=== PATIENT | female | born 1945 | race Caucasian/White ===

== ENCOUNTER 2018-01-19 18:49 | Observation (INO) ==
[2018-01-19] MEDS ORDERED: Nitroglycerin 0.4 MG TAB.SUBL SL PRN (23:48)
--- NOTE | 2018-01-20 00:30 | Internal Med History&Physical ---
Date of Encounter: 01/20/18 Time of Encounter: 00:00 Internal Medicine - H&P: HPI Chief complaint: Chest pain Admitted From: Home Plans for Post Hospital Care: Home History of present illness: Judi Gudino is a 72-year-old woman with a history of coronary artery disease status post 2 stents in 2011 and 2013 respectively, hypertension and hypothyroidism who presents here on transfer from [facility] where she presented to the complaint of chest pain. She states that she has been having on and off chest pain for many months for which she takes nitroglycerin as needed however over the last 4 days the pain has been more constant and severe in intensity and with only modest relief with her sublingual nitroglycerin. He comes in now for care because she was forced to by her children due to the unrelenting pain. She describes the pain as a heaviness over her precordium with occasional sharp exacerbations that radiate towards her left arm. She denies accompanying dyspnea or diaphoresis. At [facility] she was given 4 mg of morphine, 325 aspirin and one nitroglycerin which she says improved her pain. She usually follows with Dr. Argueta at [facility] however she requested transfer here. At this time she reports feeling well and wishes to eat and denies any active complaints. Past Med Surg Social Fam HX - Past Medical History Medical history: COPD, hypertension Additional medical history: CAD. PVD Psychiatric history: anxiety, depression - Past Surgical History Surgical History: hysterectomy Additional surgical history: back surgery. heart stents. bilateral carotid endarterectomy - Social History Smoking Status: Current some day smoker Smokeless Tobacco Status: No Alcohol use: none Drug use: none - Family History Mother Living Status: Age at : 75 Hx Family Cancer: Yes (leukemia) Father Living Status: Age at : 84 Hx Family Cancer: Yes Brother Age: 83 Living Status: Still Living Hx Family Cancer: Yes (prostate cancer) Sister Living Status: Age at : 86 Cause of : breast cancer Internal Medicine - H&P: Meds Amlodipine [Norvasc] 10 mg PO DAILY 02/10/15 [History] Aspirin Enteric Coated [Aspirin EC] 81 mg PO DAILY 02/10/15 [History] Clopidogrel [Plavix] 75 mg PO DAILY 02/10/15 [History] Dapsone 100 mg PO DAILY 02/10/15 [History] Ferrous Sulfate 325 mg PO DAILY 02/10/15 [History] Isosorbide MONOnitrate (24 HR) [Imdur] 120 mg PO DAILY 02/10/15 [History] Nitroglycerin [Nitrostat] 0.4 mg SL AD PRN 02/10/15 [History] Carvedilol [Coreg] 25 mg PO BID 02/25/16 [History] FLUoxetine HCl [Prozac] 20 mg PO DAILY 02/25/16 [History] Levothyroxine [Synthroid] 150 mcg PO 0630 02/25/16 [History] Lisinopril [Zestril] 40 mg PO DAILY 02/25/16 [History] Zolpidem [Ambien] 5 mg PO HS PRN 02/25/16 [History] Albuterol Sulfate [Proair Hfa] 2 puff IH QID PRN 01/19/18 [History] Alendronate Sodium [Fosamax] 70 mg PO QWEEK 01/19/18 [History] Atorvastatin Calcium [Lipitor] 10 mg PO DAILY 01/19/18 [History] Ezetimibe [Zetia] 10 mg PO HS 01/19/18 [History] Gabapentin [Neurontin] 300 mg PO TID 01/19/18 [History] Tiotropium [Spiriva] 18 mcg IH DAILY 01/19/18 [History] 3 Allergy/AdvReac Type Severity Reaction Status Date / Time No Known Allergies Allergy Verified 02/25/16 07:48 All Systems PM: A 10-system review of systems was performed and is negative for pertinent findings except as documented above in the HPI. - Constitutional Vitals: Temp Pulse Resp BP Pulse Ox 98.8 F 63 16 146/75 91 01/19/18 23:12 01/19/18 23:12 01/19/18 23:12 01/19/18 23:12 01/19/18 23:12 Exam: Vitals: Reviewed General: Well-developed and in no acute distress laying comfortably in bed Skin: Warm and supple HEENT: Moist mucous membranes. No conjunctivae pallor. Neck: No lymphadenopathy. No JVD. No carotid bruits. No palpable thyroid. Chest: Normal thoracic expansion. Normal breath sounds. Clear to auscultation. Heart: Normal S1 & S2; rhythmic. No rubs or murmurs. Abdomen: Non-distended, soft and non-tender to palpation. No peritoneal reaction. Extremities: No clubbing, cyanosis or edema. No calf tenderness. Normal distal pulses. Neurological: Awake, alert and oriented to person, place and time. No focal deficits. Psych: Affect appropriate. Internal Med - H&P Results - Labs Labs: Outside labs reviewed and remarkable for WBC of 9.2, hemoglobin 12.7, sodium 141 , potassium 4.7, chloride 101, creatinine 0.71 and negative troponin at 5:30 PM. - Assessment and plan (1) Chest pain Current Visit: Yes Status: Acute Assessment and plan: The patient's EKG does not have signs of acute ischemic disease which is reassuring. Her symptoms have also been going on for 4 days therefore if she were to be having AMI, one would presume there would be a positive troponin or EKG by now. Likely more unstable angina at this point. She is at moderate to high risk of ACS however. Her last stress test was in 2013 she says. Will keep NPO past midnight for nuclear stress test. Obtain another EKG and troponin here. If negative, no need for more. Continue dual antiplatelet therapy. NTG prn. Telemetry monitoring. Qualifiers: Chest pain type: precordial pain Qualified Code(s): R07.2 - Precordial pain (2) CAD (coronary artery disease) Current Visit: Yes Status: Acute Assessment and plan: Will continue long acting nitrate therapy and dual antiplatelet therapy. Qualifiers: Coronary Disease-Associated Artery/Lesion type: [place] artery [place] vs. transplanted heart: [place] heart Associated angina: with unstable angina Qualified Code(s): I25.110 - Atherosclerotic heart disease of [place] coronary artery with unstable angina pectoris (3) Hypertension Current Visit: Yes Status: Acute Assessment and plan: Will continue home antihypertensives. Qualifiers: Hypertension type: essential hypertension Qualified Code(s): I10 - Essential (primary) hypertension (4) Peripheral neuropathy Current Visit: Yes Status: Chronic Assessment and plan: Continue gabapentin. Unclear etiology. Qualifiers: Peripheral neuropathy type: polyneuropathy, unspecified Qualified Code(s): G62.9 - Polyneuropathy, unspecified (5) DVT prophylaxis Current Visit: Yes Status: Acute Assessment and plan: SubQ heparin. - Time Spent With Patient Total time spent is greater than 50% in coordination of care (as documented) at patient's floor/unit and/or counseling patient: Greater than 35 minutes
[2018-01-20] MEDS: Gabapentin 300 MG CAPSULE PO SCH ×2 (00:56→10:59)
[2018-01-20] MEDS ORDERED: Regadenoson 0.4 MG/5 ML SYRINGE IVP ONE (05:59)
[2018-01-20] MEDS ORDERED: *HR* Heparin 5,000 UNIT/ML VIAL SQ SCH (06:00)
[2018-01-20 06:11] LABS: Basophils % 0.3 %; Eosinophils # 0.2 K/mcL (0.0-0.6); Hematocrit 40.9 % (35.3-44.9); Hemoglobin 12.3 g/dL (11.5-15.4); Immature Granulocytes % 0.4 % (0-4); Lymphocytes % 28.8 %; Mean Corpuscular HGB Conc 30.1 g/dL (31.6-35.5); Mean Corpuscular Volume 83.1 fL (83.0-100.0); Mean Platelet Volume 11.1 fL (9.4-12.4); Monocytes # 0.9 K/mcL (0.0-1.3); Monocytes % 12.6 %; Neutrophils # 3.9 K/mcL (1.6-8.9); Platelet Count 179 K/mcL (140-400); Red Blood Count 4.92 M/mcL (3.82-4.97); Red Cell Distribution Width 16.9 % (11.5-14.5); Segmented Neutrophils % 54.9 %
[2018-01-20 06:16] LABS: Prothrombin Time 11.7 Seconds (9.4-12.1)
[2018-01-20 06:19] LABS: Activated Partial Thrombo Time 36.9 Seconds (26.0-36.0)
[2018-01-20 06:32] LABS: Troponin I < 0.03 ng/mL (< 0.04)
[2018-01-20 06:35] LABS: Alanine Aminotransferase 12 Units/L (7-52); Albumin 3.7 g/dL (3.5-5.7); Albumin/Globulin Ratio 1.3 (1.1-2.2); Alkaline Phosphatase 72 Units/L (34-104); Aspartate Amino Transferase 14 Units/L (13-39); BUN/Creatinine Ratio 21 (6-26); Bilirubin,Total 0.3 mg/dL (0.3-1.0); Blood Urea Nitrogen 15 mg/dL (8-23); Calcium 9.3 mg/dL (8.6-10.3); Carbon Dioxide 31 mEq/L (23-29); Chloride 102 mEq/L (98-107); Chol/HDL Ratio 4.8 (0-4.9); Cholesterol 181 mg/dL (< 200); Globulin 2.8 g/dL (2.4-3.5); Glucose 105 mg/dL (70-105); HDL Cholesterol 38 mg/dL (40-59); LDL Cholesterol,Calculated 95 mg/dL (0-99); Osmolality,Calculated 293 (280-300); Potassium 3.9 mEq/L (3.5-5.1); Sodium 141 mEq/L (136-145); Total Protein 6.5 g/dL (6.4-8.9); Triglycerides 240 mg/dL (< 150); eGFR For Non-African Americans > 60 (> 60)
[2018-01-20 06:45] LABS: Thyroid Stimulating Hormone 0.098 mcIU/mL (0.340-5.600)
[2018-01-20 07:22] LABS: Estimated Average Glucose 103 mg/dl; Hemoglobin A1C 5.2 %
[2018-01-20] MEDS ORDERED: Isosorbide MONOnitrate (24 HR) 60 MG TAB.ER.24H PO SCH (09:00)
[2018-01-20] MEDS ORDERED: amLODIPine 5 MG TABLET PO SCH (09:00)
[2018-01-20] MEDS ORDERED: Tiotropium 18 MCG inhalation IH SCH (09:00)
[2018-01-20] MEDS ORDERED: Gabapentin 300 MG CAPSULE PO SCH (09:00)
[2018-01-20] MEDS ORDERED: Lisinopril 20 MG TABLET PO SCH (09:00)
[2018-01-20] MEDS ORDERED: Aspirin Enteric Coated 81 MG Tablet PO SCH (09:00)
[2018-01-20] MEDS ORDERED: FLUoxetine 20 MG CAPSULE PO SCH (09:00)
[2018-01-20 11:36] VITALS: BP 129/67
--- NOTE | 2018-01-20 13:38 | Discharge Summary ---
Orders not resulted at time of discharge: Pending orders 01/20/18 00:22 NM jayna perf SPECT multi [NM] Routine Date of Encounter: 01/20/18 Time of Encounter: 11:00 - Discharge Diagnosis (1) Chest pain Priority: Primary Status: Acute Qualifiers: Chest pain type: precordial pain Qualified Code(s): R07.2 - Precordial pain (2) CAD (coronary artery disease) Priority: Primary Status: Acute Qualifiers: Coronary Disease-Associated Artery/Lesion type: [place] artery [place] vs. transplanted heart: [place] heart Associated angina: with unstable angina Qualified Code(s): I25.110 - Atherosclerotic heart disease of [place] coronary artery with unstable angina pectoris (3) Hypertension Priority: Secondary Status: Acute Qualifiers: Hypertension type: essential hypertension Qualified Code(s): I10 - Essential (primary) hypertension (4) Peripheral neuropathy Priority: Secondary Status: Chronic Qualifiers: Peripheral neuropathy type: polyneuropathy, unspecified Qualified Code(s): G62.9 - Polyneuropathy, unspecified (5) DVT prophylaxis Priority: Secondary Status: Acute Hospital course: Ms. Gudino is a 72 year old female transferred from [facility] emergency room for chest pain. Patient's chest pain is intermittent, with nausea and diaphoresis. Patient has history of CAD S/P stent. Patient was placed on continuous cardiac monitoring. 2 troponin in [facility] and one troponin in our hospital are negative. EKG and chest x-ray unremarkable. Patient had nuclear stress test this morning, result is negative for ischemia. Patient is pain- free right now. Vitals are stable. Will consider discharge patient home and continue follow-up with PCP and cardiology as outpatient. Patient was seen and examined. Denies chest pain, difficulty breathing, nausea , or diaphoresis. Vitals are stable. We will discharge patient home, continue DAPT, beta iman, imdur, and statin. Continue follow-up with PCP and cardiology. - Time Spent with Patient Total time spent providing and/or coordinating discharge services: 25 min Less than 30 minutes - Discharge Medications Home Medications: Amlodipine [Norvasc] 10 mg PO DAILY 02/10/15 [History] Aspirin Enteric Coated [Aspirin EC] 81 mg PO DAILY 02/10/15 [History] Clopidogrel [Plavix] 75 mg PO DAILY 02/10/15 [History] Dapsone 100 mg PO DAILY 02/10/15 [History] Ferrous Sulfate 325 mg PO DAILY 02/10/15 [History] Isosorbide MONOnitrate (24 HR) [Imdur] 120 mg PO DAILY 02/10/15 [History] Nitroglycerin [Nitrostat] 0.4 mg SL AD PRN 02/10/15 [History] Carvedilol [Coreg] 25 mg PO BID 02/25/16 [History] FLUoxetine HCl [Prozac] 20 mg PO DAILY 02/25/16 [History] Levothyroxine [Synthroid] 150 mcg PO 0630 02/25/16 [History] Lisinopril [Zestril] 40 mg PO DAILY 02/25/16 [History] Zolpidem [Ambien] 5 mg PO HS PRN 02/25/16 [History] Albuterol Sulfate [Proair Hfa] 2 puff IH QID PRN 01/19/18 [History] Alendronate Sodium [Fosamax] 70 mg PO QWEEK 01/19/18 [History] Atorvastatin Calcium [Lipitor] 10 mg PO DAILY 01/19/18 [History] Ezetimibe [Zetia] 10 mg PO HS 01/19/18 [History] Gabapentin [Neurontin] 300 mg PO TID 01/19/18 [History] Tiotropium [Spiriva] 18 mcg IH DAILY 01/19/18 [History] Allergies/Adverse Reactions: 3 Allergy/AdvReac Type Severity Reaction Status Date / Time No Known Allergies Allergy Verified 02/25/16 07:48 Date of admission: 01/19/18 21:19 Primary care physician: MAHENDRA Hart Discharging clinician: Mere Martin Anticipated date of discharge: 01/20/18 - Constitutional Vitals: Temp Pulse Resp BP Pulse Ox 97.9 F 67 16 129/67 92 01/20/18 11:34 01/20/18 11:34 01/20/18 11:34 01/20/18 11:34 01/20/18 11:34 General appearance: Present: A&O X 3, no acute distress, answers questions appropriately Exam: in NAD - Head Head exam: Present: atraumatic, normocephalic - Eye Eye exam: Present: PERRL, conjuntiva pink, sclera anicteric Pupils: Present: PERRL - Neck Neck exam general surgery: Present: supple, trachea midline. Absent: lymphadenopathy - Respiratory Respiratory exam: Present: CTAB. Absent: accessory muscle use, rales, rhonchi, wheezes - Cardiovascular Cardiovascular exam: Present: RRR, +S1, +S2. Absent: diastolic murmur, gallop, rubs, systolic murmur - GI/Abdominal GI/Abdominal exam: Present: normal bowel sounds, soft, no peritoneal signs. Absent: distended, tenderness - Extremities Exam Extremities exam: Present: warm, radial pulses palpable and symmetrical. Absent : calf tenderness, cyanotic, pedal edema - Neurological Exam Neurological exam: Present: CN II-XII intact, oriented X3, no focal deficits. Absent: pronater drift, facial droop, speech deficit - Skin Skin exam: Present: dry, intact - Patient Status Disposition: Home, Self-Care Condition: Good Functional capacity at discharge: independent ambulation Overall status at discharge: patient is back to baseline - Discharge Instructions Follow Up With: Gabrielle Wills ENROLLED NURSE [Primary Care Provider] - - Diet and Activity Activity: increase activity as tolerated Diet: advance to your usual diet
[2018-01-20] MEDS ORDERED: (Ezetimibe [Zetia] 10 MG) PO SCH (21:00)
--- NOTE | 2018-01-21 09:08 | Electrocardiograph Report ---
[address] [place] [address] Test Date: 2018-01-20 Pat Name: Judi Gudino Department: 113 Room: 3B63 Gender: F [employer] Program Specialist: : 1945 Requested By: Rajni Lujan Order Number: [id number] Reading MD: Nilo Viera Measurements Intervals [place] Rate: 62 P: 50 FL: 142 QRS: 37 QRSD: 118 T: 124 QT: 437 QTc: 442 Interpretive Statements SINUS RHYTHM POSSIBLE INFERIOR MYOCARDIAL INFARCTION, OF INDETERMINATE AGE MODERATE T-WAVE ABNORMALITY, CONSIDER LATERAL ISCHEMIA Electronically Signed On 01-21-2018 9:07:17 EDT by Nilo Viera
== END 2018-01-20 14:59 | disposition home or self-care (01) ==
LOC: 3BNU
PROVIDERS: ADMIT Internal Medicine; ATTEND Student in an Organized Health Care Education/Training Program

== ENCOUNTER 2019-03-08 13:51 | Inpatient (IN) ==
[2019-03-08] MEDS ORDERED: Aminoglycoside Consult 1 EACH MC ONE (16:47)
[2019-03-08] MEDS ORDERED: Artificial Tears SOLN 15 ML BOTTLE BOTH EYES PRN (17:41)
[2019-03-08] MEDS ORDERED: Naloxone 0.4 MG/ML INJ IVP PRN (17:41)
[2019-03-08] MEDS ORDERED: Acetaminophen 325 MG TABLET PO PRN (17:41)
[2019-03-08] MEDS ORDERED: Vancomycin (wt based) 1,000 MG VIAL IVPB SCH (18:00)
[2019-03-08] MEDS ORDERED: *HR* Heparin 5,000 UNIT/ML VIAL IVP PRN ×2 (18:11)
[2019-03-08] MEDS ORDERED: *HR* Heparin 5,000 UNIT/ML VIAL IVP ONE (18:11)
[2019-03-08 18:34] LABS: ABG Base Excess 6 mEq/L (-2 to 3); ABG HCO3 32 mEq/L (21-27); ABG Oxygen Saturation 95 % (95-98); ABG PCO2 52 mmHg (35-45); ABG PO2 77 mmHg (85-104); ABG TCO2 34 mEq/L (20-26); Blood Gas Modality VC; Blood Gas VT 400 cc
[2019-03-08] MEDS ORDERED: Ipratropium/Albuterol Neb 3 ML IH PRN (18:43)
[2019-03-08 18:54] LABS: Basophils % 0.2 %; Hematocrit 38.7 % (35.3-44.9); Immature Granulocytes % 0.5 % (0-4); Lymphocytes # 0.6 K/mcL (0.6-4.6); Lymphocytes % 8.8 %; Monocytes # 0.3 K/mcL (0.0-1.3); Monocytes % 4.3 %; Neutrophils # 5.6 K/mcL (1.6-8.9); Segmented Neutrophils % 86.2 %; White Blood Count 6.5 K/mcL (4.3-11.1)
[2019-03-08 18:55] LABS: Immature Platelets 11.4 % (1.1-6.1); Mean Corpuscular Hemoglobin 25.8 pg (28.0-33.3); Mean Corpuscular Volume 83.2 fL (83.0-100.0); Mean Platelet Volume 12.6 fL (9.4-12.4); Red Blood Count 4.65 M/mcL (3.82-4.97); Red Cell Distribution Width 18.7 % (11.5-14.5)
[2019-03-08 18:55] LABS: Heparin anti-factor XA UFH 0.25 IU/mL (0.30-0.70); INR 1.1; Prothrombin Time 12.4 Seconds (9.4-12.1)
[2019-03-08 19:11] LABS: Albumin 3.8 g/dL (3.5-5.7); Albumin/Globulin Ratio 1.4 (1.1-2.2); Bilirubin,Direct 0.3 mg/dL (0.0-0.2); Bilirubin,Indirect 0.4 mg/dL (0.0-1.0); Bilirubin,Total 0.7 mg/dL (0.3-1.0); Calcium 8.6 mg/dL (8.6-10.3); Globulin 2.8 g/dL (2.4-3.5); Phosphorous 3.5 mg/dL (2.7-4.5); Potassium 4.6 mEq/L (3.5-5.1); Total Protein 6.6 g/dL (6.4-8.9)
[2019-03-08 19:12] LABS: Calcium 8.6 mg/dL (8.6-10.3); Platelet Count 97 K/mcL (140-400); Potassium 4.6 mEq/L (3.5-5.1)
[2019-03-08 19:14] LABS: Platelet Estimate Decreased (Normal)
[2019-03-08 19:15] LABS: Troponin I 4.39 ng/mL (< 0.04)
[2019-03-08] MEDS: Artificial Tears SOLN 15 ML BOTTLE BOTH EYES SCH (20:10)
[2019-03-08] MEDS: Chlorhexidine Rinse 15 ML MOUTHWASH MM SCH (20:10)
[2019-03-08] MEDS: FentaNYL (PF) 1,000 MCG in 0.9 % Sodium Chloride 80 ML IVC SCH (20:30)
[2019-03-08] MEDS: Heparin 25,000 UNIT/250 ML D5W 25,000 UNIT/250 ML IV.SOLN IVC SCH (21:10)
[2019-03-09 00:21] LABS: Bilirubin,Urine Small (Negative); Blood,Urine Negative (Negative); Clarity,Urine Cloudy (Clear); Color,Urine Dark Yellow (Yellow); Glucose,Urine (UA) Normal (Normal); Ketones,Urine Negative (Negative); Leukocyte Esterase,Urine Small (Negative); Nitrite,Urine Negative (Negative); Protein,Urine 30 mg/dL (Neg-Trace); Specific Gravity,Urine 1.022 (1.010-1.025); Urobilinogen,Urine Normal (Normal)
[2019-03-09 00:23] LABS: Hyaline Casts,Urine Few per lpf (None-Few)
[2019-03-09] MEDS: Artificial Tears SOLN 15 ML BOTTLE BOTH EYES SCH ×6 (00:25→20:11)
[2019-03-09] MEDS: methylPREDNISolone 125 MG/2 ML VIAL IVP SCH ×3 (00:25→16:47)
[2019-03-09] MEDS: Piperacillin/Tazobactam 3.375 GM in 0.9 % Sodium Chloride Mini Bag 100 ML IVPB SCH ×3 (00:26→16:46)
[2019-03-09 00:40] LABS: Bacteria,Urine Many per hpf (None-Few)
[2019-03-09 00:41] LABS: Squamous Epithelial Cell,Urine Few per lpf (None-Few)
[2019-03-09 01:45] LABS: Basophils % 0.2 %; Red Blood Count 4.31 M/mcL (3.82-4.97)
[2019-03-09 01:47] LABS: Hematocrit 35.1 % (35.3-44.9); Immature Granulocytes % 0.3 % (0-4); Immature Platelets 12.6 % (1.1-6.1); Lymphocytes # 0.6 K/mcL (0.6-4.6); Lymphocytes % 10.1 %; Mean Corpuscular HGB Conc 31.3 g/dL (31.6-35.5); Mean Corpuscular Hemoglobin 25.5 pg (28.0-33.3); Mean Corpuscular Volume 81.4 fL (83.0-100.0); Mean Platelet Volume 12.3 fL (9.4-12.4); Monocytes # 0.4 K/mcL (0.0-1.3); Monocytes % 6.2 %; Red Cell Distribution Width 18.4 % (11.5-14.5); Segmented Neutrophils % 83.2 %; White Blood Count 6.3 K/mcL (4.3-11.1)
[2019-03-09 02:01] LABS: Calcium 8.5 mg/dL (8.6-10.3); Potassium 4.8 mEq/L (3.5-5.1)
[2019-03-09 02:18] LABS: Neutrophils # 5.2 K/mcL (1.6-8.9); Platelet Count 99 K/mcL (140-400)
[2019-03-09] MEDS ORDERED: *HR* Ticagrelor 90 MG TABLET PO ONE (03:36)
[2019-03-09 04:41] LABS: ABG Base Excess 8 mEq/L (-2 to 3); ABG HCO3 34 mEq/L (21-27); ABG Oxygen Saturation 97 % (95-98); ABG PCO2 49 mmHg (35-45); ABG PH 7.45 pH Units (7.32-7.45); ABG PO2 90 mmHg (85-104); ABG TCO2 35 mEq/L (20-26); Blood Gas Modality VC; Blood Gas VT 400 cc
[2019-03-09] MEDS: Chlorhexidine Rinse 15 ML MOUTHWASH MM SCH ×2 (08:53→20:11)
[2019-03-09] MEDS: Pantoprazole 40 MG VIAL IVP SCH (08:53)
[2019-03-09] MEDS ORDERED: Aspirin 81 MG TAB.CHEW PO SCH (09:00)
[2019-03-09] MEDS ORDERED: 0.9 % Sodium Chloride 1,000 ML IVC SCH (10:45)
[2019-03-09] MEDS: FentaNYL (PF) 1,000 MCG in 0.9 % Sodium Chloride 80 ML IVC SCH (10:54)
[2019-03-09] MEDS: Furosemide 20 MG/2 ML VIAL IVP SCH (11:28)
[2019-03-09 13:40] LABS: Adenovirus Not Detected (Not Detect); Bordetella Pertussis Not Detected (Not Detect); Chlamydophila pneumoniae Not Detected (Not Detect); Coronavirus 229E Not Detected (Not Detect); Coronavirus HKU1 Not Detected (Not Detect); Coronavirus NL63 Not Detected (Not Detect); Coronavirus OC43 Not Detected (Not Detect); Human Metapneumovirus Not Detected (Not Detect); Human Rhinovirus/Enterovirus Not Detected (Not Detect); Influenza A Subtype 2009 H1 Not Detected (Not Detect); Influenza A Untypeable Not Detected (Not Detect); Influenza B Not Detected (Not Detect); Mycoplasma pneumoniae Not Detected (Not Detect); Parainfluenza Virus 1 Not Detected (Not Detect); Parainfluenza Virus 2 Not Detected (Not Detect); Parainfluenza Virus 3 Not Detected (Not Detect); Parainfluenza Virus 4 Not Detected (Not Detect); Respiratory Syncytial Virus Not Detected (Not Detect)
[2019-03-09] MEDS ORDERED: 0.9 % Sodium Chloride 2,000 ML ONE (13:58)
[2019-03-09] MEDS ORDERED: ISOVUE-370 200 ML INFUS..BTL ONE ×2 (13:59→15:25)
[2019-03-09] MEDS ORDERED: *HR* Heparin 10,000 UNIT/10 ML VIAL ONE (13:59)
[2019-03-09] MEDS ORDERED: Heparin 1,000 UNITS/500 mL 500 ML ONE (13:59)
[2019-03-09] MEDS ORDERED: Nitroglycerin 1,000 MCG/10 ML VIAL IV ONE (13:59)
[2019-03-09] MEDS ORDERED: Tirofiban 12.5 MG/250ML 12.5 MG/250 ML BAG ONE (15:16)
[2019-03-09] MEDS ORDERED: Tirofiban 12.5 MG/250ML 12.5 MG/250 ML BAG IVC SCH (15:45)
[2019-03-09] MEDS: Heparin 25,000 UNIT/250 ML D5W 25,000 UNIT/250 ML IV.SOLN IVC SCH (18:42)
[2019-03-09] MEDS: *HR* Ticagrelor 90 MG TABLET PO SCH (20:12)
[2019-03-10] MEDS: Artificial Tears SOLN 15 ML BOTTLE BOTH EYES SCH ×6 (00:56→19:47)
[2019-03-10] MEDS: methylPREDNISolone 125 MG/2 ML VIAL IVP SCH ×4 (00:56→23:54)
[2019-03-10] MEDS: Piperacillin/Tazobactam 3.375 GM in 0.9 % Sodium Chloride Mini Bag 100 ML IVPB SCH ×2 (01:15→08:43)
[2019-03-10] MEDS: FentaNYL (PF) 1,000 MCG in 0.9 % Sodium Chloride 80 ML IVC SCH (04:35)
[2019-03-10 05:31] LABS: Segmented Neutrophils % 86.5 %
[2019-03-10 05:32] LABS: Hematocrit 33.9 % (35.3-44.9); Immature Granulocytes % 0.6 % (0-4); Immature Platelets 12.3 % (1.1-6.1); Lymphocytes # 0.4 K/mcL (0.6-4.6); Lymphocytes % 5.6 %; Mean Corpuscular HGB Conc 32.4 g/dL (31.6-35.5); Mean Corpuscular Hemoglobin 26.1 pg (28.0-33.3); Mean Corpuscular Volume 80.3 fL (83.0-100.0); Monocytes # 0.5 K/mcL (0.0-1.3); Monocytes % 7.3 %; Neutrophils # 5.9 K/mcL (1.6-8.9); Nucleated Red Blood Cells 0.3 /100 WBC (0); Platelet Count 116 K/mcL (140-400); Red Blood Count 4.22 M/mcL (3.82-4.97); White Blood Count 6.8 K/mcL (4.3-11.1)
[2019-03-10 05:50] LABS: ABG Base Excess 6 mEq/L (-2 to 3); ABG HCO3 31 mEq/L (21-27); ABG Oxygen Saturation 98 % (95-98); ABG PCO2 42 mmHg (35-45); ABG PH 7.47 pH Units (7.32-7.45); ABG PO2 91 mmHg (85-104); ABG TCO2 32 mEq/L (20-26); Blood Gas Modality VC+; Blood Gas VT 400 cc
[2019-03-10 05:52] LABS: Calcium 8.4 mg/dL (8.6-10.3)
[2019-03-10] MEDS: *HR* Ticagrelor 90 MG TABLET PO SCH ×2 (08:40→19:47)
[2019-03-10] MEDS: Aspirin 81 MG TAB.CHEW PO SCH (08:40)
[2019-03-10] MEDS: Pantoprazole 40 MG VIAL IVP SCH (08:40)
[2019-03-10] MEDS: Chlorhexidine Rinse 15 ML MOUTHWASH MM SCH ×2 (08:41→19:47)
[2019-03-10] MEDS: Furosemide 20 MG/2 ML VIAL IVP SCH (08:41)
[2019-03-10] MEDS ORDERED: *HR* Metoprolol 5 MG/5 ML VIAL IVP ONE ×3 (11:35→13:19)
[2019-03-10] MEDS: *HR* LORazepam 0.5 MG TABLET PO PRN ×2 (13:53→21:20)
[2019-03-10] MEDS: Heparin 25,000 UNIT/250 ML D5W 25,000 UNIT/250 ML IV.SOLN IVC SCH (17:40)
[2019-03-10] MEDS: Meropenem 500 MG in Water for inj. (sterile) 10 ML IVP SCH (18:01)
[2019-03-10] MEDS ORDERED: *HR* LORazepam 2 MG/ML VIAL IVP ONE (23:43)
[2019-03-10] MEDS ORDERED: *HR* LORazepam 2 MG/ML VIAL ONE (23:51)
[2019-03-11] MEDS: Artificial Tears SOLN 15 ML BOTTLE BOTH EYES SCH ×3 (00:07→07:18)
[2019-03-11] MEDS: Meropenem 500 MG in Water for inj. (sterile) 10 ML IVP SCH (05:19)
[2019-03-11 06:08] LABS: Basophils % 0.1 %; Red Cell Distribution Width 18.8 % (11.5-14.5)
[2019-03-11 06:10] LABS: Eosinophils % 0.1 %; Hematocrit 38.4 % (35.3-44.9); Hemoglobin 12.2 g/dL (11.5-15.4); Immature Granulocytes % 0.7 % (0-4); Immature Platelets 10.8 % (1.1-6.1); Lymphocytes # 0.4 K/mcL (0.6-4.6); Mean Corpuscular HGB Conc 31.8 g/dL (31.6-35.5); Mean Corpuscular Volume 81.9 fL (83.0-100.0); Monocytes # 0.5 K/mcL (0.0-1.3); Monocytes % 6.2 %; Neutrophils # 7.2 K/mcL (1.6-8.9); Platelet Count 122 K/mcL (140-400); Red Blood Count 4.69 M/mcL (3.82-4.97); Segmented Neutrophils % 87.9 %; White Blood Count 8.2 K/mcL (4.3-11.1)
[2019-03-11 06:32] LABS: Anisocytosis 1+ (Not Present); Microcytosis Present (Not Present); Platelet Estimate Slight Decrease (Normal)
[2019-03-11] MEDS: Chlorhexidine Rinse 15 ML MOUTHWASH MM SCH (07:18)
[2019-03-11] MEDS: Aspirin 81 MG TAB.CHEW PO SCH (07:26)
[2019-03-11] MEDS: *HR* Ticagrelor 90 MG TABLET PO SCH ×2 (07:26→21:29)
[2019-03-11] MEDS: methylPREDNISolone 125 MG/2 ML VIAL IVP SCH (07:26)
[2019-03-11] MEDS: Pantoprazole 40 MG VIAL IVP SCH (07:27)
[2019-03-11 07:53] LABS: Calcium 8.8 mg/dL (8.6-10.3); Potassium 4.5 mEq/L (3.5-5.1)
[2019-03-11] MEDS ORDERED: Naloxone 0.4 MG/ML INJ IVP PRN (11:52)
[2019-03-11] MEDS ORDERED: Ipratropium/Albuterol Neb 3 ML IH PRN (11:52)
[2019-03-11] MEDS ORDERED: *HR* LORazepam 0.5 MG TABLET PO PRN (11:52)
[2019-03-11] MEDS ORDERED: Acetaminophen 325 MG TABLET PO PRN (11:52)
[2019-03-11] MEDS ORDERED: Piperacillin/Tazobactam 3.375 GM in 0.9 % Sodium Chloride Mini Bag 100 ML IVPB SCH (16:00)
[2019-03-11] MEDS: *HR* Heparin 5,000 UNIT/ML VIAL SQ SCH (17:26)
[2019-03-11] MEDS ORDERED: *HR* Heparin 5,000 UNIT/ML VIAL SQ SCH (18:00)
[2019-03-12 04:54] LABS: Basophils % 0.1 %; Mean Corpuscular Hemoglobin 25.3 pg (28.0-33.3); Red Cell Distribution Width 18.5 % (11.5-14.5)
[2019-03-12 04:56] LABS: Eosinophils % 0.2 %; Hematocrit 36.5 % (35.3-44.9); Hemoglobin 11.3 g/dL (11.5-15.4); Immature Granulocytes % 1.3 % (0-4); Lymphocytes # 1.2 K/mcL (0.6-4.6); Lymphocytes % 14.4 %; Mean Corpuscular Volume 81.8 fL (83.0-100.0); Mean Platelet Volume 12.6 fL (9.4-12.4); Monocytes # 1.2 K/mcL (0.0-1.3); Neutrophils # 5.8 K/mcL (1.6-8.9); Platelet Count 153 K/mcL (140-400); Red Blood Count 4.46 M/mcL (3.82-4.97); White Blood Count 8.3 K/mcL (4.3-11.1)
[2019-03-12 05:12] LABS: Calcium 8.9 mg/dL (8.6-10.3); Potassium 4.2 mEq/L (3.5-5.1)
[2019-03-12] MEDS: *HR* Heparin 5,000 UNIT/ML VIAL SQ SCH (06:09)
[2019-03-12] MEDS ORDERED: Nitroglycerin 0.4 MG TAB.SUBL SL PRN (08:30)
[2019-03-12] MEDS: *HR* Ticagrelor 90 MG TABLET PO SCH (08:50)
[2019-03-12] MEDS ORDERED: Isosorbide MONOnitrate (24 HR) 60 MG TAB.ER.24H PO SCH (09:00)
[2019-03-12] MEDS ORDERED: amLODIPine 5 MG TABLET PO SCH (09:00)
[2019-03-12] MEDS ORDERED: Pantoprazole 40 MG VIAL IVP SCH (09:00)
[2019-03-12] MEDS ORDERED: Aspirin 81 MG TAB.CHEW PO SCH (09:00)
[2019-03-12] MEDS ORDERED: predniSONE 20 MG TABLET PO SCH ×2 (09:00)
[2019-03-12] MEDS: Gabapentin 300 MG CAPSULE PO SCH ×2 (09:47→15:44)
[2019-03-12] MEDS ORDERED: Tiotropium 18 MCG inhalation IH SCH (10:00)
[2019-03-12 11:08] VITALS: BP 160/75
[2019-03-12] MEDS ORDERED: traZODone 50 MG TABLET PO SCH (21:00)
== END 2019-03-12 16:48 | disposition home health service (06) | DRG 853 ==
LOC: ICNU 17:21 → 2NENU 03-11 14:16
PROVIDERS: ADMIT Pediatrics; ATTEND Pediatrics

== ENCOUNTER 2019-04-23 13:28 | Inpatient (IN) ==
[2019-04-23] MEDS ORDERED: Ondansetron 4 MG/2 ML VIAL IVP PRN (16:48)
[2019-04-23 17:44] LABS: Monocytes % 1.2 %; Red Blood Count 4.53 M/mcL (3.82-4.97)
[2019-04-23 17:46] LABS: Basophils % 0.1 %; Eosinophils % 0.1 %; Hematocrit 38.1 % (35.3-44.9); Hemoglobin 11.7 g/dL (11.5-15.4); Immature Granulocytes % 1.2 % (0-4); Immature Platelets 11.1 % (1.1-6.1); Lymphocytes # 0.3 K/mcL (0.6-4.6); Lymphocytes % 4.7 %; Mean Corpuscular HGB Conc 30.7 g/dL (31.6-35.5); Mean Corpuscular Hemoglobin 25.8 pg (28.0-33.3); Mean Corpuscular Volume 84.1 fL (83.0-100.0); Mean Platelet Volume 11.7 fL (9.4-12.4); Monocytes # 0.1 K/mcL (0.0-1.3); Neutrophils # 6.4 K/mcL (1.6-8.9); Platelet Count 115 K/mcL (140-400); Red Cell Distribution Width 17.5 % (11.5-14.5); Segmented Neutrophils % 92.7 %; White Blood Count 6.9 K/mcL (4.3-11.1)
[2019-04-23 18:01] LABS: BUN/Creatinine Ratio 17 (6-26); Blood Urea Nitrogen 17 mg/dL (8-23); Calcium 9.2 mg/dL (8.6-10.3); Carbon Dioxide 31 mEq/L (23-29); Chloride 97 mEq/L (98-107); Glucose 228 mg/dL (70-105); Osmolality,Calculated 299 (280-300); Potassium 4.7 mEq/L (3.5-5.1); Sodium 140 mEq/L (136-145); eGFR For African Americans > 60 (> 60); eGFR For Non-African Americans 55 (> 60)
[2019-04-23] MEDS: Azithromycin 500 MG in 0.9 % Sodium Chloride 250 ML IVPB SCH (18:02)
[2019-04-23] MEDS: Levalbuterol Neb 1.25 MG/3 ML IH SCH ×2 (18:44→22:22)
[2019-04-23] MEDS ORDERED: Ibuprofen 400 MG TABLET PO ONE (18:46)
[2019-04-23] MEDS: Nicotine 14 MG PATCH.TD24 TD SCH (19:37)
[2019-04-23] MEDS: Gabapentin 300 MG CAPSULE PO SCH (20:44)
[2019-04-23] MEDS: traZODone 50 MG TABLET PO SCH (20:44)
[2019-04-23] MEDS: *HR* Ticagrelor 90 MG TABLET PO SCH (20:44)
[2019-04-23] MEDS: GuaiFENesin/Dextromethorphan TABLET PO SCH (20:44)
[2019-04-23 21:20] LABS: Adenovirus Not Detected (Not Detect); Bordetella Pertussis Not Detected (Not Detect); Chlamydophila pneumoniae Not Detected (Not Detect); Coronavirus 229E Not Detected (Not Detect); Coronavirus HKU1 Not Detected (Not Detect); Coronavirus NL63 Not Detected (Not Detect); Coronavirus OC43 Not Detected (Not Detect); Human Metapneumovirus Not Detected (Not Detect); Human Rhinovirus/Enterovirus Not Detected (Not Detect); Influenza A Subtype 2009 H1 Not Detected (Not Detect); Influenza A Untypeable Not Detected (Not Detect); Influenza B Not Detected (Not Detect); Mycoplasma pneumoniae Not Detected (Not Detect); Parainfluenza Virus 1 Not Detected (Not Detect); Parainfluenza Virus 2 Not Detected (Not Detect); Parainfluenza Virus 3 Not Detected (Not Detect); Parainfluenza Virus 4 Not Detected (Not Detect); Respiratory Syncytial Virus Not Detected (Not Detect)
[2019-04-23 22:41] LABS: ABG Base Excess 5 mEq/L (-2 to 3); ABG HCO3 32 mEq/L (21-27); ABG Oxygen Saturation 90 % (95-98); ABG PCO2 58 mmHg (35-45); ABG PH 7.36 pH Units (7.32-7.45); ABG PO2 62 mmHg (85-104); ABG TCO2 34 mEq/L (20-26)
[2019-04-24] MEDS ORDERED: Benzonatate 100 MG CAPSULE PO PRN (01:21)
[2019-04-24] MEDS: Levalbuterol Neb 1.25 MG/3 ML IH SCH ×4 (04:08→22:17)
[2019-04-24 04:31] LABS: Basophils % 0.1 %; Hematocrit 37.3 % (35.3-44.9); Hemoglobin 11.5 g/dL (11.5-15.4); Immature Granulocytes % 1.5 % (0-4); Lymphocytes # 0.8 K/mcL (0.6-4.6); Lymphocytes % 9.9 %; Mean Corpuscular HGB Conc 30.8 g/dL (31.6-35.5); Mean Corpuscular Hemoglobin 25.6 pg (28.0-33.3); Mean Corpuscular Volume 83.1 fL (83.0-100.0); Mean Platelet Volume 11.8 fL (9.4-12.4); Monocytes # 0.5 K/mcL (0.0-1.3); Monocytes % 6.5 %; Neutrophils # 6.6 K/mcL (1.6-8.9); Nucleated Red Blood Cells 0.2 /100 WBC (0); Platelet Count 149 K/mcL (140-400); Red Blood Count 4.49 M/mcL (3.82-4.97); Red Cell Distribution Width 17.7 % (11.5-14.5)
[2019-04-24 04:51] LABS: BUN/Creatinine Ratio 29 (6-26); Blood Urea Nitrogen 22 mg/dL (8-23); Calcium 9.3 mg/dL (8.6-10.3); Carbon Dioxide 30 mEq/L (23-29); Chloride 100 mEq/L (98-107); Glucose 161 mg/dL (70-105); Osmolality,Calculated 299 (280-300); Potassium 4.8 mEq/L (3.5-5.1); Sodium 141 mEq/L (136-145); eGFR For African Americans > 60 (> 60); eGFR For Non-African Americans > 60 (> 60)
[2019-04-24] MEDS: *HR* Ticagrelor 90 MG TABLET PO SCH ×2 (09:23→20:00)
[2019-04-24] MEDS: Aspirin Enteric Coated 81 MG Tablet PO SCH (09:23)
[2019-04-24] MEDS: GuaiFENesin/Dextromethorphan TABLET PO SCH ×2 (09:24→20:00)
[2019-04-24] MEDS: amLODIPine 5 MG TABLET PO SCH (09:24)
[2019-04-24] MEDS: Isosorbide MONOnitrate (24 HR) 60 MG TAB.ER.24H PO SCH (09:24)
[2019-04-24] MEDS: Gabapentin 300 MG CAPSULE PO SCH ×3 (09:24→20:00)
[2019-04-24] MEDS: MethylPREDNISolone 40 MG/ML VIAL IVP SCH ×2 (09:25→17:45)
[2019-04-24] MEDS: Nicotine 14 MG PATCH.TD24 TD SCH (09:25)
[2019-04-24] MEDS: Nicotine 21 MG PATCH.TD24 TD SCH (15:15)
[2019-04-24] MEDS: Azithromycin 500 MG in 0.9 % Sodium Chloride 250 ML IVPB SCH (17:45)
[2019-04-24] MEDS: traZODone 50 MG TABLET PO SCH (20:00)
[2019-04-25] MEDS: Levalbuterol Neb 1.25 MG/3 ML IH SCH ×4 (04:09→22:34)
[2019-04-25] MEDS: MethylPREDNISolone 40 MG/ML VIAL IVP SCH ×2 (06:37→17:10)
[2019-04-25] MEDS: Gabapentin 300 MG CAPSULE PO SCH ×3 (08:40→22:31)
[2019-04-25] MEDS: Isosorbide MONOnitrate (24 HR) 60 MG TAB.ER.24H PO SCH (08:40)
[2019-04-25] MEDS: *HR* Ticagrelor 90 MG TABLET PO SCH ×2 (08:40→22:31)
[2019-04-25] MEDS: GuaiFENesin/Dextromethorphan TABLET PO SCH ×2 (08:40→22:31)
[2019-04-25] MEDS: Aspirin Enteric Coated 81 MG Tablet PO SCH (08:40)
[2019-04-25] MEDS: Nicotine 21 MG PATCH.TD24 TD SCH (08:40)
[2019-04-25] MEDS: amLODIPine 5 MG TABLET PO SCH (08:40)
[2019-04-25] MEDS: Ranolazine 500 MG TAB.ER.12H PO SCH ×2 (11:02→22:31)
[2019-04-25] MEDS ORDERED: Azithromycin 250 MG TABLET PO SCH (17:00)
[2019-04-25] MEDS: carvediloL 25 MG TABLET PO SCH (17:10)
[2019-04-25] MEDS: *HR* Heparin 5,000 UNIT/ML VIAL SQ SCH (17:10)
[2019-04-25] MEDS ORDERED: NON-FORMULARY MEDICATION 1 EACH EACH (Ezetimibe [Zetia] 10 MG) PO SCH (21:00)
[2019-04-25] MEDS: traZODone 50 MG TABLET PO SCH (22:31)
[2019-04-26] MEDS: Levalbuterol Neb 1.25 MG/3 ML IH SCH (04:53)
[2019-04-26] MEDS: MethylPREDNISolone 40 MG/ML VIAL IVP SCH (05:17)
[2019-04-26] MEDS: *HR* Heparin 5,000 UNIT/ML VIAL SQ SCH (05:17)
[2019-04-26 07:28] VITALS: BP 162/88
[2019-04-26] MEDS ORDERED: hydrALAZINE 25 MG TABLET PO SCH (08:15)
[2019-04-26] MEDS: Nicotine 21 MG PATCH.TD24 TD SCH (08:49)
[2019-04-26] MEDS: carvediloL 25 MG TABLET PO SCH (08:49)
[2019-04-26] MEDS: Aspirin Enteric Coated 81 MG Tablet PO SCH (08:49)
[2019-04-26] MEDS: *HR* Ticagrelor 90 MG TABLET PO SCH (08:49)
[2019-04-26] MEDS: Ranolazine 500 MG TAB.ER.12H PO SCH (08:49)
[2019-04-26] MEDS: GuaiFENesin/Dextromethorphan TABLET PO SCH (08:49)
[2019-04-26] MEDS: amLODIPine 5 MG TABLET PO SCH (08:49)
[2019-04-26] MEDS: Gabapentin 300 MG CAPSULE PO SCH (08:49)
[2019-04-26] MEDS: Isosorbide MONOnitrate (24 HR) 60 MG TAB.ER.24H PO SCH (08:49)
[2019-04-26] MEDS ORDERED: NON-FORMULARY MEDICATION 1 EACH EACH (Isosorbide Mononitrate [Isosorbide Mononitrate Er] 1 PO SCH (09:00)
[2019-04-26] MEDS ORDERED: Furosemide 20 MG TABLET PO SCH (09:00)
== END 2019-04-26 10:37 | disposition home or self-care (01) | DRG 190 ==
LOC: 2NENU → SUATTDRO 15:24
PROVIDERS: ADMIT Internal Medicine; ATTEND Internal Medicine

== ENCOUNTER 2019-04-30 21:28 | Inpatient (IN) ==
[2019-04-30] MEDS ORDERED: Ipratropium/Albuterol Neb 3 ML IH ONE (22:35)
[2019-04-30 22:36] LABS: Basophils % 0.3 %; Eosinophils # 0.1 K/mcL (0.0-0.6); Eosinophils % 1.2 %; Hematocrit 41.9 % (35.3-44.9); Hemoglobin 12.7 g/dL (11.5-15.4); Immature Granulocytes % 2.7 % (0-4); Lymphocytes # 2.8 K/mcL (0.6-4.6); Lymphocytes % 23.8 %; Mean Corpuscular HGB Conc 30.3 g/dL (31.6-35.5); Mean Corpuscular Volume 85.7 fL (83.0-100.0); Mean Platelet Volume 11.3 fL (9.4-12.4); Monocytes # 1.4 K/mcL (0.0-1.3); Monocytes % 11.7 %; Neutrophils # 7.1 K/mcL (1.6-8.9); Platelet Count 211 K/mcL (140-400); Red Blood Count 4.89 M/mcL (3.82-4.97); Red Cell Distribution Width 16.5 % (11.5-14.5); Segmented Neutrophils % 60.3 %; White Blood Count 11.8 K/mcL (4.3-11.1)
[2019-04-30 22:36] LABS: ABG Base Excess 12 mEq/L (-2 to 3); ABG HCO3 41 mEq/L (21-27); ABG Oxygen Saturation 89 % (95-98); ABG PCO2 73 mmHg (35-45); ABG PH 7.36 pH Units (7.32-7.45); ABG PO2 63 mmHg (85-104); ABG TCO2 43 mEq/L (20-26)
[2019-04-30 23:00] LABS: BUN/Creatinine Ratio 32 (6-26); Blood Urea Nitrogen 32 mg/dL (8-23); Calcium 9.2 mg/dL (8.6-10.3); Carbon Dioxide 41 mEq/L (23-29); Chloride 94 mEq/L (98-107); Glucose 145 mg/dL (70-105); Osmolality,Calculated 293 (280-300); Potassium 4.7 mEq/L (3.5-5.1); Sodium 137 mEq/L (136-145); eGFR For African Americans > 60 (> 60); eGFR For Non-African Americans 55 (> 60)
[2019-05-01] MEDS ORDERED: Naloxone 0.4 MG/ML INJ IVP PRN (01:14)
[2019-05-01] MEDS ORDERED: Nitroglycerin 0.4 MG TAB.SUBL SL PRN (01:17)
[2019-05-01] MEDS ORDERED: Gabapentin 300 MG CAPSULE PO PRN (01:17)
[2019-05-01] MEDS: traZODone 50 MG TABLET PO PRN ×2 (03:09→21:21)
[2019-05-01] MEDS: Ranolazine 500 MG TAB.ER.12H PO SCH ×2 (03:09→13:20)
[2019-05-01] MEDS: Ipratropium/Albuterol Neb 3 ML IH SCH ×6 (04:07→23:09)
[2019-05-01 05:06] LABS: Hematocrit 41.1 % (35.3-44.9); Hemoglobin 12.1 g/dL (11.5-15.4); Mean Corpuscular HGB Conc 29.4 g/dL (31.6-35.5); Mean Corpuscular Hemoglobin 26.1 pg (28.0-33.3); Mean Corpuscular Volume 88.8 fL (83.0-100.0); Mean Platelet Volume 11.8 fL (9.4-12.4); Platelet Count 186 K/mcL (140-400); Red Blood Count 4.63 M/mcL (3.82-4.97); Red Cell Distribution Width 16.5 % (11.5-14.5); White Blood Count 9.5 K/mcL (4.3-11.1)
[2019-05-01 05:28] LABS: BUN/Creatinine Ratio 34 (6-26); Blood Urea Nitrogen 32 mg/dL (8-23); Calcium 9.2 mg/dL (8.6-10.3); Carbon Dioxide 41 mEq/L (23-29); Chloride 93 mEq/L (98-107); Glucose 121 mg/dL (70-105); Osmolality,Calculated 296 (280-300); Potassium 4.2 mEq/L (3.5-5.1); Sodium 139 mEq/L (136-145); eGFR For African Americans > 60 (> 60); eGFR For Non-African Americans 59 (> 60)
[2019-05-01 06:06] LABS: ABG Base Excess 10 mEq/L (-2 to 3); ABG HCO3 39 mEq/L (21-27); ABG Oxygen Saturation 89 % (95-98); ABG PCO2 78 mmHg (35-45); ABG PH 7.31 pH Units (7.32-7.45); ABG PO2 66 mmHg (85-104); ABG TCO2 42 mEq/L (20-26)
[2019-05-01] MEDS: *HR* Heparin 5,000 UNIT/ML VIAL SQ SCH ×3 (06:35→21:24)
[2019-05-01 08:21] LABS: ABG Base Excess 11 mEq/L (-2 to 3); ABG HCO3 40 mEq/L (21-27); ABG Oxygen Saturation 88 % (95-98); ABG PCO2 72 mmHg (35-45); ABG PH 7.35 pH Units (7.32-7.45); ABG PO2 60 mmHg (85-104); ABG TCO2 42 mEq/L (20-26)
[2019-05-01] MEDS ORDERED: predniSONE 10 MG TABLET PO SCH (09:00)
[2019-05-01] MEDS ORDERED: NON-FORMULARY MEDICATION 1 EACH EACH (Prednisone [Prednisone] 10 MG) PO SCH (09:00)
[2019-05-01] MEDS: Isosorbide MONOnitrate (24 HR) 60 MG TAB.ER.24H PO SCH (10:00)
[2019-05-01] MEDS: Nicotine 21 MG PATCH.TD24 TD SCH (10:00)
[2019-05-01] MEDS: Furosemide 20 MG TABLET PO SCH (10:01)
[2019-05-01] MEDS: Aspirin Enteric Coated 81 MG Tablet PO SCH (10:01)
[2019-05-01] MEDS: amLODIPine 5 MG TABLET PO SCH (10:01)
[2019-05-01] MEDS: *HR* Ticagrelor 90 MG TABLET PO SCH ×2 (10:01→21:21)
[2019-05-01] MEDS: carvediloL 25 MG TABLET PO SCH ×2 (10:01→18:20)
[2019-05-01] MEDS: Fluticasone Propionate Nasal 50 MCG/SPRAY BOTTLE NS SCH ×2 (15:36→20:45)
[2019-05-01] MEDS: Azithromycin 500 MG in 0.9 % Sodium Chloride 250 ML IVPB SCH (18:20)
[2019-05-01] MEDS: Budesonide Neb 0.5 MG/2 ML IH SCH (20:16)
[2019-05-01] MEDS: (Ezetimibe [Zetia] 10 MG) PO SCH (21:25)
[2019-05-02] MEDS: Ranolazine 500 MG TAB.ER.12H PO SCH ×2 (00:31→16:12)
[2019-05-02 01:37] LABS: Basophils % 0.3 %; Eosinophils # 0.1 K/mcL (0.0-0.6); Eosinophils % 1.3 %; Hematocrit 40.2 % (35.3-44.9); Hemoglobin 12.6 g/dL (11.5-15.4); Immature Granulocytes % 1.8 % (0-4); Lymphocytes # 1.9 K/mcL (0.6-4.6); Lymphocytes % 19.7 %; Mean Corpuscular HGB Conc 31.3 g/dL (31.6-35.5); Mean Corpuscular Hemoglobin 26.1 pg (28.0-33.3); Mean Corpuscular Volume 83.4 fL (83.0-100.0); Mean Platelet Volume 11.3 fL (9.4-12.4); Monocytes # 0.9 K/mcL (0.0-1.3); Monocytes % 9.2 %; Neutrophils # 6.7 K/mcL (1.6-8.9); Platelet Count 208 K/mcL (140-400); Red Blood Count 4.82 M/mcL (3.82-4.97); Red Cell Distribution Width 16.5 % (11.5-14.5); Segmented Neutrophils % 67.7 %; White Blood Count 9.8 K/mcL (4.3-11.1)
[2019-05-02 01:55] LABS: BUN/Creatinine Ratio 35 (6-26); Blood Urea Nitrogen 34 mg/dL (8-23); Calcium 9.6 mg/dL (8.6-10.3); Carbon Dioxide 39 mEq/L (23-29); Chloride 93 mEq/L (98-107); Glucose 131 mg/dL (70-105); Osmolality,Calculated 293 (280-300); Potassium 5.1 mEq/L (3.5-5.1); Sodium 137 mEq/L (136-145); eGFR For African Americans > 60 (> 60); eGFR For Non-African Americans 57 (> 60)
[2019-05-02 02:07] LABS: Thyroid Stimulating Hormone 0.152 mcIU/mL (0.340-5.600)
[2019-05-02] MEDS: Ipratropium/Albuterol Neb 3 ML IH SCH ×5 (04:21→20:07)
[2019-05-02] MEDS: *HR* Heparin 5,000 UNIT/ML VIAL SQ SCH ×3 (06:29→20:52)
[2019-05-02] MEDS: Budesonide Neb 0.5 MG/2 ML IH SCH ×2 (07:21→20:07)
[2019-05-02] MEDS: Furosemide 20 MG TABLET PO SCH (10:42)
[2019-05-02] MEDS: Isosorbide MONOnitrate (24 HR) 60 MG TAB.ER.24H PO SCH (10:42)
[2019-05-02] MEDS: Aspirin Enteric Coated 81 MG Tablet PO SCH (10:42)
[2019-05-02] MEDS: predniSONE 20 MG TABLET PO SCH (10:42)
[2019-05-02] MEDS: Nicotine 21 MG PATCH.TD24 TD SCH (10:43)
[2019-05-02] MEDS: amLODIPine 5 MG TABLET PO SCH (10:43)
[2019-05-02] MEDS: carvediloL 25 MG TABLET PO SCH ×2 (10:43→16:13)
[2019-05-02] MEDS: *HR* Ticagrelor 90 MG TABLET PO SCH (10:43)
[2019-05-02] MEDS: Fluticasone Propionate Nasal 50 MCG/SPRAY BOTTLE NS SCH ×2 (10:44→20:55)
[2019-05-02] MEDS: Azithromycin 500 MG in 0.9 % Sodium Chloride 250 ML IVPB SCH (16:13)
[2019-05-02] MEDS: traZODone 50 MG TABLET PO PRN (20:54)
[2019-05-02] MEDS: (Ezetimibe [Zetia] 10 MG) PO SCH (20:55)
[2019-05-03] MEDS: Ipratropium/Albuterol Neb 3 ML IH SCH ×7 (00:09→23:46)
[2019-05-03] MEDS: *HR* Ticagrelor 90 MG TABLET PO SCH ×3 (01:06→19:38)
[2019-05-03] MEDS: Ranolazine 500 MG TAB.ER.12H PO SCH ×2 (01:08→14:33)
[2019-05-03] MEDS: *HR* Heparin 5,000 UNIT/ML VIAL SQ SCH ×2 (04:50→14:33)
[2019-05-03 06:09] LABS: Basophils % 0.2 %; Eosinophils # 0.1 K/mcL (0.0-0.6); Eosinophils % 1.6 %; Hematocrit 37.6 % (35.3-44.9); Hemoglobin 11.4 g/dL (11.5-15.4); Lymphocytes # 1.6 K/mcL (0.6-4.6); Lymphocytes % 18.6 %; Mean Corpuscular HGB Conc 30.3 g/dL (31.6-35.5); Mean Corpuscular Hemoglobin 26.3 pg (28.0-33.3); Mean Corpuscular Volume 86.6 fL (83.0-100.0); Mean Platelet Volume 11.7 fL (9.4-12.4); Monocytes # 0.9 K/mcL (0.0-1.3); Monocytes % 9.8 %; Neutrophils # 6.1 K/mcL (1.6-8.9); Platelet Count 182 K/mcL (140-400); Red Blood Count 4.34 M/mcL (3.82-4.97); Red Cell Distribution Width 16.7 % (11.5-14.5); Segmented Neutrophils % 68.8 %; White Blood Count 8.8 K/mcL (4.3-11.1)
[2019-05-03 06:30] LABS: Calcium 9.3 mg/dL (8.6-10.3); Potassium 4.6 mEq/L (3.5-5.1)
[2019-05-03] MEDS: Budesonide Neb 0.5 MG/2 ML IH SCH ×2 (07:09→19:58)
[2019-05-03] MEDS ORDERED: predniSONE 20 MG TABLET PO SCH (09:00)
[2019-05-03] MEDS: Furosemide 20 MG TABLET PO SCH (10:39)
[2019-05-03] MEDS: Nicotine 21 MG PATCH.TD24 TD SCH (10:39)
[2019-05-03] MEDS: carvediloL 25 MG TABLET PO SCH ×2 (10:39→17:59)
[2019-05-03] MEDS: amLODIPine 5 MG TABLET PO SCH (10:40)
[2019-05-03] MEDS: predniSONE 20 MG TABLET PO SCH (10:40)
[2019-05-03] MEDS: Aspirin Enteric Coated 81 MG Tablet PO SCH (10:40)
[2019-05-03] MEDS: Isosorbide MONOnitrate (24 HR) 60 MG TAB.ER.24H PO SCH (10:40)
[2019-05-03] MEDS: Fluticasone Propionate Nasal 50 MCG/SPRAY BOTTLE NS SCH ×2 (10:43→19:38)
[2019-05-03] MEDS ORDERED: Azithromycin 250 MG TABLET PO SCH (17:00)
[2019-05-04] MEDS: (Ezetimibe [Zetia] 10 MG) PO SCH (01:18)
[2019-05-04] MEDS: *HR* Heparin 5,000 UNIT/ML VIAL SQ SCH ×2 (01:22→06:53)
[2019-05-04] MEDS: Ranolazine 500 MG TAB.ER.12H PO SCH (01:22)
[2019-05-04] MEDS: Ipratropium/Albuterol Neb 3 ML IH SCH ×3 (03:54→11:22)
[2019-05-04 05:01] LABS: ABG Base Excess 9 mEq/L (-2 to 3); ABG HCO3 34 mEq/L (21-27); ABG Oxygen Saturation 93 % (95-98); ABG PCO2 50 mmHg (35-45); ABG PH 7.44 pH Units (7.32-7.45); ABG PO2 66 mmHg (85-104); ABG TCO2 36 mEq/L (20-26)
[2019-05-04] MEDS: Budesonide Neb 0.5 MG/2 ML IH SCH (07:27)
[2019-05-04 07:40] VITALS: BP 160/61
[2019-05-04] MEDS: *HR* Ticagrelor 90 MG TABLET PO SCH (08:29)
[2019-05-04] MEDS: carvediloL 25 MG TABLET PO SCH (08:29)
[2019-05-04] MEDS: Aspirin Enteric Coated 81 MG Tablet PO SCH (08:29)
[2019-05-04] MEDS: Furosemide 20 MG TABLET PO SCH (08:29)
[2019-05-04] MEDS: predniSONE 20 MG TABLET PO SCH (08:30)
[2019-05-04] MEDS: amLODIPine 5 MG TABLET PO SCH (08:30)
[2019-05-04] MEDS: Isosorbide MONOnitrate (24 HR) 60 MG TAB.ER.24H PO SCH (08:30)
[2019-05-04] MEDS: Nicotine 21 MG PATCH.TD24 TD SCH (08:31)
[2019-05-04] MEDS: Fluticasone Propionate Nasal 50 MCG/SPRAY BOTTLE NS SCH (08:32)
[2019-05-08] MEDS ORDERED: predniSONE 10 MG TABLET PO SCH (09:00)
== END 2019-05-04 15:58 | disposition home or self-care (01) | DRG 190 ==
LOC: EMEROOARM 21:28 → 2NENU 21:28 → SUATTDRO 05-01 00:30 → 2NENU 05-01 00:59
PROVIDERS: ADMIT Internal Medicine; ATTEND Internal Medicine